=== PATIENT | female | born 1975 | race Caucasian/White ===

== ENCOUNTER 2020-11-22 05:25 | Emergency (ER) | payer BC, OTHER ==
[2020-11-22 06:10] LABS: CHLORIDE,CL 97 mmol/L (98-107); SODIUM,NA 135 mmol/L (136-145)
[2020-11-22 06:11] LABS: ANION GAP 11.1 mmol/L (5-15)
--- NOTE | 2020-11-22 06:14 | EDM.PDOC ---
ED HPI GENERAL MEDICAL PROBLEM - General Chief Complaint: Neuro Symptoms/Deficits Stated Complaint: Episode garbled speech Time Seen by Provider: 11/22/20 05:00 Source of Information: Reports: EMS, Family History Limitations: Reports: No Limitations - History of Present Illness INITIAL COMMENTS - FREE TEXT/NARRATIVE: PtKeon presents to ER with complaints of expressive aphasia. Pt. had a CVA on 11/11/2020 and presented to this facility with L sided weakness, facial droop. Pt. was given TPA and transferred to [facility] in [place] where she was hospitalized for approx. 4 days. I do not have access to her med records from [facility] to see the results of her other imaging she underwent at [facility]. states that he came home from work at 3:00 yesterday and she was exper iencing some confusion. She states that she was having trouble coming up with words, and was calling him Karl (this is the name of her ex ). She also was saying some confusing things, such as there was a train going through her yard. states that she went to bed at 8:30 and slept all night. He states that he got up to go to work today and contacted the [facility] ER who advised she come to the ER for due to concerns of recurrent stoke. EMS was summoned. On their arrival, pt. was behaving appropriately. Speech was fluent according to EMS. Family states that she has had some continued facial droop since the stroke, but state that this is not worse from previous. Onset Date: 11/21/20 - Related Data Allergies Allergy/AdvReac Type Severity Reaction Status Date / Time nitrofurantoin Allergy Other Verified 11/22/20 05:44 [From Macrobid] Penicillins Allergy Other Verified 11/22/20 05:43 ED ROS GENERAL - Review of Systems Review Of Systems: See Below Constitutional: Reports: No Symptoms HEENT: Reports: No Symptoms Respiratory: Reports: No Symptoms Cardiovascular: Reports: No Symptoms Endocrine: Reports: No Symptoms GI/Abdominal: Reports: No Symptoms : Reports: No Symptoms Musculoskeletal: Reports: No Symptoms Skin: Reports: No Symptoms Neurological: Reports: Other (See HPI) Psychiatric: Reports: No Symptoms Hematologic/Lymphatic: Reports: No Symptoms Immunologic: Reports: No Symptoms ED EXAM, GENERAL - Physical Exam Exam: See Below Exam Limited By: No Limitations General Appearance: Alert, WD/WN, No Apparent Distress Eye Exam: Bilateral Eye: EOMI, PERRL Head: Atraumatic, Normocephalic Neck: Normal Inspection, Supple, Non-Tender, Full Range of Motion Respiratory/Chest: No Respiratory Distress, Lungs Clear, Normal Breath Sounds, No Accessory Muscle Use, Chest Non-Tender Cardiovascular: Normal Peripheral Pulses, Regular Rate, Rhythm, No Edema, No JVD, No Murmur, No Rub GI/Abdominal: Soft, Non-Tender, No Distention, No Mass (Female) Exam: Deferred Rectal (Female) Exam: Deferred Back Exam: Normal Inspection, Full Range of Motion Extremities: Normal Inspection, Normal Range of Motion, Non-Tender, No Pedal Edema, Normal Capillary Refill Neurological: Alert, Oriented, CN II-XII Intact, Normal Gait, Normal Reflexes, No Motor/Sensory Deficits, Other (See attached NIH stroke scale. Total score 3, 1 off speech content, 1 off speech clarity, 1 off facial droop.) Psychiatric: Normal Affect, Normal Mood Skin Exam: Warm, Dry, Intact, Normal Color, No Rash Lymphatic: No Adenopathy Course - Orders/Labs/Meds Orders: Active Orders 24 hr Category Date Time Status EKG Documentation Completion [RC] STAT Care 11/22/20 05:46 Active Head wo Cont [CT] Stat Exams 11/22/20 05:44 Taken Labs: Laboratory Tests 11/22/20 11/22/20 11/22/20 Range/Units 05:41 05:41 05:41 WBC 11.3 H (4.0-10.0) x10^3/uL RBC 5.09 (4.00-5.50) x10^6/uL Hgb 15.1 (12.0-16.0) g/dL Hct 45.9 (33.0-47.0) % MCV 90.2 (78.0-93.0) fL MCH 29.7 (26.0-32.0) pg MCHC 32.9 (32.0-36.0) g/dL RDW Coeff of Blanche 15.9 H (10.0-15.0) % Plt Count 302 (130-400) x10^3/uL Add Manual Diff Yes Neutrophils % (Manual) 73 (50-80) % Band Neutrophils % 4 (0-6) % Lymphocytes % (Manual) 17 L (25-50) % Monocytes % (Manual) 2 (2-11) % Eosinophils % (Manual) 3 (0-4) % Basophils % (Manual) 1 (0-1) % Platelet Estimate Adequate PT 10.6 (9.9-12.5) SEC INR 1.0 L (2.0-3.5) APTT (25.6-32.8) SEC Sodium 135 L (136-145) mmol/L Potassium 4.1 (3.5-5.1) mmol/L Chloride 97 L (98-107) mmol/L Carbon Dioxide 31 (21-32) mmol/L Anion Gap 11.1 (5-15) mmol/L BUN 14 (7-18) mg/dL Creatinine 1.0 (0.55-1.02) mg/dL Est Cr Clr Drug Dosing TNP Estimated GFR (MDRD) 60 Glucose 111 H (70-99) mg/dL Calcium 8.8 (8.5-10.1) mg/dL Corrected Calcium 9.4 (8.5-10.1) mg/dL Magnesium 2.0 (1.8-2.4) mg/dL Total Bilirubin 0.4 (0.2-1.0) mg/dL AST 19 (15-37) U/L ALT 31 (14-59) U/L Alkaline Phosphatase 88 (46-116) U/L Troponin I High Sens < 4 (<=51) ng/L Total Protein 7.7 (6.4-8.2) g/dL Albumin 3.2 L (3.4-5.0) g/dL Globulin 4.5 Albumin/Globulin Ratio 0.71 //21 Range/Units 05:41 WBC (4.0-10.0) x10^3/uL RBC (4.00-5.50) x10^6/uL Hgb (12.0-16.0) g/dL Hct (33.0-47.0) % MCV (78.0-93.0) fL MCH (26.0-32.0) pg MCHC (32.0-36.0) g/dL RDW Coeff of Blanche (10.0-15.0) % Plt Count (130-400) x10^3/uL Add Manual Diff Neutrophils % (Manual) (50-80) % Band Neutrophils % (0-6) % Lymphocytes % (Manual) (25-50) % Monocytes % (Manual) (2-11) % Eosinophils % (Manual) (0-4) % Basophils % (Manual) (0-1) % Platelet Estimate PT (9.9-12.5) SEC INR (2.0-3.5) APTT 29.0 (25.6-32.8) SEC Sodium (136-145) mmol/L Potassium (3.5-5.1) mmol/L Chloride (98-107) mmol/L Carbon Dioxide (21-32) mmol/L Anion Gap (5-15) mmol/L BUN (7-18) mg/dL Creatinine (0.55-1.02) mg/dL Est Cr Clr Drug Dosing Estimated GFR (MDRD) Glucose (70-99) mg/dL Calcium (8.5-10.1) mg/dL Corrected Calcium (8.5-10.1) mg/dL Magnesium (1.8-2.4) mg/dL Total Bilirubin (0.2-1.0) mg/dL AST (15-37) U/L ALT (14-59) U/L Alkaline Phosphatase (46-116) U/L Troponin I High Sens (<=51) ng/L Total Protein (6.4-8.2) g/dL Albumin (3.4-5.0) g/dL Globulin Albumin/Globulin Ratio Departure - Departure Time of Disposition: 07:04 Disposition: DC/Tfer to Acute Hospital 02 Clinical Impression: Cerebrovascular accident (CVA) - Discharge Information Forms: ED Department Discharge - Problem List Review Problem List Initiated/Reviewed/Updated: Yes - My Orders Last 24 Hours: My Active Orders 11/22/20 05:44 Head wo Cont [CT] Stat 11/22/20 05:46 EKG Documentation Completion [RC] STAT - Assessment/Plan Last 24 Hours: My Active Orders 11/22/20 05:44 Head wo Cont [CT] Stat 11/22/20 05:46 EKG Documentation Completion [RC] STAT Plan: Pt. will be transferred to [facility] as a stroke code. Dr. Golden accepts patient in transfer. Discussed findings with patient and family. Documentation regarding 5/3 visit were included. EKG is pending. CT brain without contrast obtained and did not reveal any acute pathology.
--- NOTE | 2020-11-22 08:27 | CT ---
[id number] CT/CT Head Stroke Protocol EXAM: CT Head Stroke Protocol CLINICAL DATA: STROKE CODE,EXPRESSIVE APHASIA. COMPARISON STUDY: November 11, 2020. FINDINGS: No intracranial hemorrhage, extra-axial fluid collection, mass, or acute ischemia. No hydrocephalus. Previously seen areas of hypodensity in the posterior fossa on examination from 02/11/2021 are consistent with streak artifact from the calvarium. Calvarium intact. Paranasal sinuses and mastoid air cells are clear. IMPRESSION: No acute intracranial findings. If there is continued clinical suspicion of ischemic change, MRI of the brain with and without contrast is recommended. Fadi Shabazz MD 11/22/20 0826 Thank you for allowing us to participate in the care of your patient.
== END 2020-11-22 07:45 | disposition short-term general hospital (02) ==
LOC: VM.ED 05:25
DX: I63.9 Cerebral infarction, unspecified (principal); Z88.0 Allergy status to penicillin; Z88.1 Allergy status to other antibiotic agents
CPT/HCPCS: 36415; 70450; 80053; 83735; 84484; 85025; 85610; 85730; 93005; 99284; 99285-25